=== PATIENT | male | born 1990 ===

== ENCOUNTER 2021-05-15 10:08 | Outpatient (CLI) | payer OTHER, SELFPAY ==
--- NOTE | 2021-05-15 10:15 | MR_ITS ---
WS: [id number] MRI LEFT HAND without CONTRAST. COMPARISON: None Multiplanar, multisequence imaging is performed without contrast. History: Injury to third digit 3 weeks ago. There is a large amount of edema surrounding nearly the entire third finger. Edema is centered around the PIP joint. Abnormal appearance of the radial and ulnar collateral ligaments at the PIP joint. No rmal bands of the collateral ligaments are not identified. Suspect completely torn radial and ulnar c ollateral ligaments. No marrow edema or fracture. There is also mild displacement although no tear in volving the flexor tendon and sheath along the palmar aspect of the hand at the level of the third PI P joint. There is a small amount of fluid between the head of the proximal third phalanx and the tend on sheath. The A1 jumana appears closely associated with the base of the proximal phalanx with no dis placement. MR/MR hand LT wo con* [id number] IMPRESSION: 1. No fracture. 2. Large amount of edema surrounding the third finger centered greatest at the PIP joint. 3. Torn radial and ulnar collateral ligaments at the third proximal IP joint. 4. Increase fluid between the proximal third phalanx and the flexor tendon she ath but no tear within the tendon.
== END 2021-05-15 10:09 | disposition home or self-care (01) ==
LOC: RADSHAW 10:11
PROVIDERS: Visit Provider Family Medicine
DX: M20.002 Unspecified deformity of left finger(s) (principal); R60.0 Localized edema; S53.31XA Traumatic rupture of right ulnar collateral ligament, initial encounter; X58.XXXA Exposure to other specified factors, initial encounter
CPT/HCPCS: 73218

== ENCOUNTER 2022-04-01 14:26 | Outpatient (CLI) | payer OTHER, SELFPAY ==
[2022-04-02 12:22] LABS: RPR w(Moniotor) w/REFL Titer NON-REACTIVE (NON-REACTIVE)
[2022-04-02 15:23] LABS: Hepatitis A Antibody Total REACTIVE (NON-REACTIVE)
== END 2022-04-01 14:27 | disposition home or self-care (01) ==
PROVIDERS: Visit Provider Family Medicine
DX: Z01.89 Encounter for other specified special examinations (principal)
CPT/HCPCS: 86592; 86708; 87491; 87591

== ENCOUNTER 2022-08-12 13:32 | Outpatient (CLI) | payer OTHER, SELFPAY ==
[2022-08-12 14:13] LABS: Basophils # 0.1 10^3/uL (0.0-0.1); Eosinophils # 0.2 10^3/uL (0.0-0.8); Eosinophils % 2.9 %; Hematocrit 43.3 % (42.0-52.0); Hemoglobin 14.2 g/dL (11.7-16.6); Lymphocytes # 1.5 10^3/uL (0.8-4.8); Lymphocytes % 20.8 %; Mean Corpuscular HGB Conc 32.8 g/dL (30.0-36.0); Mean Corpuscular Hemoglobin 27.7 pg (28.0-34.0); Mean Corpuscular Volume 84.4 fl (80-94); Mean Platelet Volume 9.8 fL (7.4-10.4); Monocytes # 0.7 10^3/uL (0.2-0.9); Monocytes % 10.1 %; Neutrophils # 4.75 10^3/uL (1.8-7.7); Neutrophils % 64.7 %; Nucleated Red Blood Cells % 0 %; Platelet Count 272 10^3/cmm (130-400); Red Blood Count 5.13 10^6/uL (4.1-5.3); Red Cell Distribution Width 12.3 % (12.1-15.1); White Blood Count 7.3 10^3/uL (4.0-10.0)
[2022-08-12 14:31] LABS: Alanine Aminotransferase 14 U/L (0-41); Albumin Level 4.2 g/dL (3.5-5.2); Alkaline Phosphatase 80 U/L (40-130); Anion Gap 14.1 (5-19); Aspartate Amino Transferase 17 U/L (0-40); Blood Urea Nitrogen 13 mg/dL (6-20); Calcium 9.5 mg/dL (8.5-10.5); Carbon Dioxide 28 mmol/L (22-29); Chloride 99 mmol/L (98-107); Chol HDL Ratio 5.21 mg/dL (1.0-5.00); Cholesterol 172 mg/dL (0-200); Globulin 3.2 g/dL (1.3-4.6); Glomerular Filtration Rate 96.6 mL/min (90-130); Glucose 92 mg/dL (65-115); HDL Cholesterol 33 mg/dL (60-100); LDL Cholesterol Calculated 98 mg/dL (50-129); LDL HDL Ratio 2.97 RATIO (0.00-3.22); Osmolality Calculated 284 mOsm/kg (285-295); Potassium 4.1 mmol/L (3.5-5.1); Sodium 137 mmol/L (136-145); Total Bilirubin 0.5 mg/dL (0.15-1.2); Total Protein 7.4 g/dL (6.6-8.7); Triglycerides 206 mg/dL (0-150)
--- NOTE | 2022-08-13 14:37 | XRR_ITS ---
PROCEDURE INFORMATION: Exam: XR Right Knee Exam date and time: 08/13/2022 2:37 PM Age: 32 years old Clinical indication: Pain; Knee; Right; Additional info: Right knee pain TECHNIQUE: Imaging protocol: Radiologic exam of the Right knee. Views: 3 views. COMPARISON: No relevant prior studies available. FINDINGS: Bones/joints: Normal. Soft tissues: Normal.
[2022-08-15 13:02] LABS: Testosterone, Free 64.5 pg/mL (46.0-224.0)
[2023-06-29 10:29] LABS: Hepatitis A Antibody Total REACTIVE
== END 2022-08-12 13:33 | disposition home or self-care (01) ==
PROVIDERS: PCP Family Medicine; Visit Provider Family Medicine
DX: Z01.89 Encounter for other specified special examinations (principal)
CPT/HCPCS: 36415; 80053; 80061; 84402; 85025; 86708; 86886

== ENCOUNTER 2022-08-13 08:18 | Outpatient (CLI) | payer OTHER, SELFPAY ==
--- NOTE | 2022-08-13 | XRR_ITS ---
PROCEDURE INFORMATION: Exam: XR Right Knee Exam date and time: 08/13/2022 2:37 PM Age: 32 years old Clinical indication: Pain; Knee; Right; Additional info: Right knee pain TECHNIQUE: Imaging protocol: Radiologic exam of the Right knee. Views: 3 views. COMPARISON: No relevant prior studies available. FINDINGS: Bones/joints: Normal. Soft tissues: Normal. IMPRESSION: No acute findings. MTDD
== END 2022-08-13 08:19 | disposition home or self-care (01) ==
LOC: RAD 08-16 08:26
PROVIDERS: PCP Family Medicine; Visit Provider Family Medicine
DX: M25.561 Pain in right knee (principal)
CPT/HCPCS: 73562

== ENCOUNTER 2024-01-31 13:15 | Emergency (ER) | payer OTHER, SELFPAY ==
--- NOTE | 2024-01-31 13:16 | XRR_ITS ---
PROCEDURE INFORMATION: Exam: XR Right Hand Exam date and time: 01/31/2024 1:18 PM Age: 33 years old Clinical indication: Pain; Hand; Right; Additional info: Ap oblique R fourth digit, check for fracture TECHNIQUE: Imaging protocol: Radiologic exam of the right hand. Views: 1 or 2 views. COMPARISON: No relevant prior studies available. FINDINGS: Bones/joints: There is a nondisplaced oblique fracture through the distal 4th phalanx just proximal to the tuft. There is no articular surface involvement. Alignment is normal. Joint spaces are preserved. Soft tissues: There is mild edema in the distal 4th finger. XR/XR hand RT 2V [id number] IMPRESSION: Acute nondisplaced distal 4th phalangeal fracture.
--- NOTE | 2024-01-31 13:39 | ED_ITS ---
HPI - General Adult General: Stated complaint: RT 4th Finger Fx History of Present Illness: Not ER patient note for ordering for x-ray only. PFSH ED PFSH: Medical History (Updated 01/31/24 @ 14:07 by Frantz Brown DO) Crepitus of joint of right knee Lateral meniscus derangement Social History Smoking and tobacco/nicotine status: never used tobacco/nicotine Alcohol intake: never Substance/Drug Use: never MDM - General Adult Medical Decision Making Nondisplaced phalanx fracture discussed with patient Lab Data Radiology Impressions Hand X-Ray 01/31/24 13:16 IMPRESSION: Acute nondisplaced distal 4th phalangeal fracture. All radiology interpretation(s) finalized by discharge Discharge Plan Discharge Patient Disposition: Home Clinical Impression: Distal phalanx or phalanges, closed fracture Condition: Stable Prescriptions: No Action prednisone 20 mg tablet 40 mg PO DAILY 5 Days Qty: 10 0RF Discharge Orders: Discharge ED (Routine); Ordered 01/31/24 Ordered By: Frantz Brown Referrals: Eleno Burnham DO [Primary Care Provider] - Patient Instructions: Opioid Safety, Pain Management Coding Level of Care Code ED Bankruptcy Assistant for Joeg Antonio
== END 2024-01-31 15:14 | disposition home or self-care (01) ==
PROVIDERS: Emergency Provider Family Medicine; PCP Family Medicine
DX: S62.644A Nondisplaced fracture of proximal phalanx of right ring finger, initial encounter for closed fracture (principal); X58.XXXA Exposure to other specified factors, initial encounter
CPT/HCPCS: 73120; 99283